=== PATIENT | male | born 1960 | race African-American/Black ===

== ENCOUNTER → 2017-03-31 | Outpatient (CLI) | payer OTHER ==
--- NOTE | 2017-03-31 15:47 | RAD ---
LUMBAR SPINE 2-3V (AP, lateral, coned down spot views) Clinical Indication: DEGENERATIVE DISC DISEASE. Comparison: None. Findings: The patient is mildly rotated on the AP and lateral view. There are 5 nonrib-bearing lumbar-type vertebral bodies. Straightening of the normal lumbar lordosis. No listhesis. Vertebral body heights are maintained. Mild multilevel degenerative changes of the visualized spine. No significant soft tissue abnormality. IMPRESSION: 1. No acute fracture or malalignment. 2. Mild multilevel degenerative changes of the visualized spine.
--- NOTE | 2017-03-31 15:47 | RAD ---
KNEE LEFT 2V Clinical Indication: Knee pain, stiffness Comparison: None. Findings: No acute fracture or malalignment. Mild medial and patellofemoral compartment arthrosis. No suprapatellar joint effusion. Bony mineralization is normal for the patient's age. Dense vascular calcifications. No radiopaque foreign body. IMPRESSION: 1. No acute fracture or malalignment. 2. Mild medial and patellofemoral compartment arthrosis.
== END | disposition home or self-care (01) ==
LOC: RAD 10:43
DX: M17.12 Unilateral primary osteoarthritis, left knee (principal); M51.36 Other intervertebral disc degeneration, lumbar region
CPT/HCPCS: 72100; 73560